=== PATIENT | female | born 1990 | race Caucasian/White ===

== ENCOUNTER 2021-05-12 16:11 | Outpatient (CLI) | payer OTHER ==
[~2021-05-12] VITALS: Ht 168.9 cm; Wt 65.9 kg
[2021-05-12 16:43] VITALS: BP 106/68
== END 2021-05-12 17:40 | disposition home or self-care (01) ==
LOC: LDOP 16:11
PROVIDERS: ATTEND Student in an Organized Health Care Education/Training Program
DX: O98.512 Other viral diseases complicating pregnancy, second trimester (principal); U07.1 COVID-19; Z3A.22 22 weeks gestation of pregnancy
CPT/HCPCS: 87635; 99201; 99211; G0463